=== PATIENT | female | born 1975 | race Caucasian/White ===

== ENCOUNTER → 2020-10-14 13:17 | Outpatient (CLI) | payer OTHER, SELFPAY ==
--- NOTE | 2020-10-14 | EMB_PTH ---
PATIENT: GUME CONCEPCION LOC: [facility] U#:[id number] AGE/SX: 49/F ROOM: RE10/14/[address]: Dr. Wili Pena MD : 1975 BED: DIS: SPEC #: [id number] RECD: 10/14/20 13:38 STATUS: RANDEE DEAN #: [id number] DONNA: 10/14/20 00:[address]: Wili Pena DEPT: SURGICAL PATHOLOGY RECD BY: Jessica Stephens Tissues: Endometrium, NOS Procedures: Surgery Specimen Level IV HEADER OPERATION: Endometrial biopsy PRE-OP DIAGNOSIS: Menorrhagia TISSUE SUBMITTED: Endometrial biopsy MICROSCOPIC DIAGNOSIS Endometrial biopsy: Disordered proliferative endometrium. JULIO:tiana 10/18/20 MICROSCOPIC DESCRIPTION Slides are reviewed. GROSS DESCRIPTION Received in fixative is one container labeled with the patient's name and designated endometrial biopsy. The specimen consists of multiple irregular and elongated fragments of light to dark liz soft tissue that in aggregate measure 2.5 x 1.5 x 0.1 cm. The specimen is totally submitted in one cassette. / AM:tiana 10/15/20 TC:5 CPT: 75169
[2020-10-17 04:48] LABS: HPV Reflexed? NOT INDICATED
== END ==
PROVIDERS: Visit Provider Obstetrics & Gynecology
DX: Z12.4 Encounter for screening for malignant neoplasm of cervix (principal)
CPT/HCPCS: 88175; 88305; G0145

== ENCOUNTER 2020-12-06 06:00 | Day surgery (SDC) | payer SELFPAY, OTHER ==
[2020-11-22 15:04] LABS: Hematocrit 25.6 % (37-47); Hemoglobin 6.6 g/dL (12.0-15.0); Mean Corp Hgb Conc 25.8 g/dL (32-36); Mean Corpuscular Hgb 15.1 pg (27.0-32.0); Mean Corpuscular Volume 58.7 fL (81-99); Mean Platelet Vol. 9.1 fl (6.2-12.0); Platelet Count 448 K/mm3 (150-450); RBC Distribution Width CV 19.9 % (11.6-14.6); RBC Distribution Width SD 40.3 fl (35.1-43.9); Red Blood Count 4.36 M/mm3 (4.2-5.4); White Blood Count 8.3 K/mm3 (4.4-11.0)
[2020-11-22 15:11] LABS: Prothrombin Time (Protime)PT. 12.8 SECONDS (11.7-14.9)
[2020-11-22 15:42] LABS: hCG Titer Quant., Serum < 1 mIU/mL (1-3)
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
[2020-12-06] VITALS (7 sets, daily range): BP systolic 111–125; BP diastolic 75–86; PULSE 72–85; RESP 16–18; TEMP 36.2–37.2; O2SAT 93–100; BMI 43.7
[2020-12-06] MEDS: Lactated Ringers 1,000 ML 100 ML IV (06:39)
[2020-12-06] MEDS: Cefazolin 2 GM in 0.9% Normal Saline 100 ML IV (07:24)
--- NOTE | 2020-12-06 07:30 | EMB_PTH ---
PATIENT: GUME CONCEPCION LOC: [facility] [place] U#:[id number] AGE/SX: 45/F ROOM: RE12/06/[address]: Dr. Wili Pena MD : 1975 BED: DIS: 12/06/2020 SPEC #: [id number] RECD: 12/06/20 09:54 STATUS: RANDEE OMRAN #: [id number] DONNA: 12/06/20 07:[address]: Wili Pena DEPT: SURGICAL PATHOLOGY RECD BY: Jono Choudhary ENTERED: 12/06/20 10:57 SP TYPE: ENDOM BX/C LENORA DR: Justine Arzate, DENNY Tissues: Endometrium, NOS Procedures: Surgery Specimen Level IV HEADER OPERATION: Hysteroscopy, D & C PRE-OP DIAGNOSIS: Premenopause menorrhagia TISSUE SUBMITTED: Endometrial curettings MICROSCOPIC DIAGNOSIS Endometrium, curetting: Simple hyperplasia without atypia. Focal stromal breakdown. Rare fragments of benign superficial squamous mucosa and endocervical mucosa. AM:tiana 12/07/2020 COMMENT Case has been reviewed in consultation with Dr. Sinha who concurs with the above diagnosis. IDC:JULIO MICROSCOPIC DESCRIPTION Slides are reviewed. GROSS DESCRIPTION Received in fixative is one container labeled with the patient's name and designated endometrial curettings. The specimen consists of multiple irregular fragments of pink-red soft tissue mixed with blood clot that in aggregate measure 5 x 3 x 0.6 cm. The specimen is totally submitted in four cassettes. / JULIO:tiana 12/06/20 TC:5 CPT: 16024
--- NOTE | 2020-12-06 07:31 | OP.PCM_ITS ---
Report of Operation Date of Procedure: 12/06/20 Pre-Operative Diagnosis: Menorrhagia, Blood Loss Anemia Post-Operative Diagnosis: Menorrhagia, Blood Loss Anemia Surgery/Procedure Performed:: Diagnostic Hysteroscopy, Dilation and Curettage, Endometrial Polyp Description of Surgical Findings:: 8 cm endometrial cavity with approximately 2 cm endometrial polyp. Cervix extremely high in vagina which would make vaginal hysterectomy not feasible un less robotic assistance were used. Possible submucous fibroid palpated with curette at right fundal area of the uterus. Type of Anesthesia:: MAC Anesthesiologist: Tara Rosario Specimen's removed: Endometrial curettings Estimated Blood Loss (mL): Minimal Fluids Replaced: Crystalloid Description of Procedure: Surgeon: Wili Pena MD, FACOG Indications: This is a 45 year old patient who has the above diagnosis. The patient has been counseled regarding the risk and indications of this procedure including the possibility of bleeding, infection, and injury to surrounding structures such as bowel bladder. All questions were answered and we consider the patient well-informed. Procedure: The patient was taken to the operating room where after induction of general anesthesia, she was placed in the dorsolithotomy position and prepped and draped in the usual sterile fashion. The bladder was drained of approximately 30 cc of clear yellow urine with a catheter. Anterior cervix was grasped with the tenaculum and dilated to about 4-5 mm. A 3 mm hysteroscope was placed in the uterus of the above findings were noted. Cervix was dilated to about 7-8 mm and uterus was gently curetted removing all contents. Hysteroscope was reinserted and all material was noted to be removed. In the course of the procedure approximately 100 cc of saline distending media was used and virtually all of this was recovered. Patient tolerated procedure well was taken to recovery room in satisfactory condition sponge instrument and needle counts were all reportedly correct. Estimated blood loss for the case was minimal. Grafts/Implants Used: None - Complications None - Admit VTE Documentation VTE Present on Admission: Yes VTE Mechan Device Prophylaxis: SCD's
--- NOTE | 2020-12-06 07:58 | PCM.DC.D&C ---
Discharge Diet: No Restrictions Discharge Activity: Return to Normal Activity, May Shower, May Take a Tub Bath May resume sexual activity in: 1-2 weeks Call your doctor if you observe: Fever of 101 or Higher, Inability to urinate, Inability to have a bowel movement, Using more than one pad per hour Allergies/Adverse Reactions: Allergies No Known Allergies Allergy (Verified 11/30/20 08:49) Medications to take at Discharge Ferrous Sulfate 325 mg PO TID 11/30/20 Primary Care Physician: Justine Arzate NP, A R SPECIALIST-C [Primary Care Provider] - Test Results: Test results from this visit will be discussed in further detail at your follow-up appointment, if applicable. Please Follow Up With: Wili Pena MD When: 2 to 3 weeks
== END 2020-12-06 09:48 | disposition home or self-care (01) ==
LOC: SDC 06:01 → AC 06:02
PROVIDERS: PCP Nurse Practitioner Family; Referring Provider Obstetrics & Gynecology; Visit Provider Obstetrics & Gynecology
PROC: 0UDB8ZZ Extraction of Endometrium, Via Natural or Artificial Opening Endoscopic (ICD-10-PCS; CPT 58558; principal; 2020-12-06 07:20)
DX: N85.01 Benign endometrial hyperplasia (principal); N92.1 Excessive and frequent menstruation with irregular cycle; Z20.828 Contact with and (suspected) exposure to other viral communicable diseases; D50.0 Iron deficiency anemia secondary to blood loss (chronic)
CPT/HCPCS: 00952; 58558; 36415; 84702; 85027; 85610; 85730; 86850; 86900; 86901; 87426; 88305; C9803; J7120; J2405

== ENCOUNTER 2021-01-10 05:58 | Day surgery (SDC) | payer SELFPAY, OTHER ==
[2020-12-06 06:30] VITALS: BMI 43.7
[2021-01-05 12:14] LABS: Prothrombin Time (Protime)PT. 12.4 SECONDS (11.7-14.9)
[2021-01-05 12:15] LABS: Partial Thromboplast Time 32.6 Seconds (24.1-36.2)
[2021-01-05 12:50] LABS: Hematocrit 38.3 % (37-47); Hemoglobin 11.2 g/dL (12.0-15.0); Mean Corp Hgb Conc 29.2 g/dL (32-36); Mean Corpuscular Hgb 22.3 pg (27.0-32.0); Mean Corpuscular Volume 76.1 fL (81-99); Mean Platelet Vol. 9.8 fl (6.2-12.0); POSITIVE MORPHOLOGY YES; Platelet Count 343 K/mm3 (150-450); Red Blood Count 5.03 M/mm3 (4.2-5.4); White Blood Count 8.9 K/mm3 (4.4-11.0)
[2021-01-05 13:23] LABS: Scan Indicated on CBC? Y/N YES- FLAGS NOTED
[2021-01-05 13:25] LABS: Differential Comment SCANNED
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
[2021-01-10] VITALS (12 sets, daily range): BP systolic 121–151; BP diastolic 78–96; PULSE 56–86; RESP 16; TEMP 36.2–37.3; O2SAT 93–100; BMI 43.7
[2021-01-10 06:47] LABS: Creatinine, Serum 0.66 mg/dL (0.55-1.02); EST Glomerular Filtration Rate 102 mL/min (>60); Est Glom Filt Rate - Afr Amer 123 mL/min (>60); Estimated Creatinine Clearance 79.52 ml/min
[2021-01-10] MEDS: Cefotetan 2 GM in 0.9% NS 100 ML IV (07:25)
--- NOTE | 2021-01-10 07:27 | OP.PCM_ITS ---
Report of Operation Date of Procedure: 01/10/21 Pre-Operative Diagnosis: Menorrhagia, Submucous Fibroids Post-Operative Diagnosis: Menorrhagia, Submucous Fibroids, Adhesions, Left Ovarian Cysts Surgery/Procedure Performed:: Robotic Assisted Vaginal Hysterectomy and Bilate ral Salpingectomy, Left Oophorectomy Description of Surgical Findings:: 12 cm uterus with normal-appearing fallopian tubes and right ovary at the right ovary adhered to the pelvic sidewall. Markedly cystic left ovary suggestive of endometriosis. Evidence of prior sections. Adhesions of the omentum to the right anterior abdominal wall and filmy adhesions throughout the pelvis. Adhesions of the uterus to the bladder anteriorly. researcher: Laura Gonzalez Type of Anesthesia:: General - Endotracheal Anesthesiologist: Chapito Chow Specimen's removed: Uterus and bilateral fallopian tubes and left ovary Drains: Navarro to straight drain Estimated Blood Loss (mL): Minimal Fluids Replaced: Crystalloid Description of Procedure: Surgeon: Wili Pena MD, FACOG Indication: This is a 45 year old patient who has been having problems with extremely heavy menses, simple endometrial hyperplasia, and submucous fibroids. Conservative measures have not been helpful. The patient has been counseled regarding the risks, benefits and alternatives of this procedure including the possibility of bleeding, infection, and injury to surrounding structures such as bowel bladder and all questions were answered. She understands that if BSO is needed that she will need to be on HRT for an indefinite period of time. Procedure: Pt taken to the operating room where, after induction of general anesthesia, the patient was prepped and draped in the usual sterile fashion and placed on a non-slip Huggy-u-vac device. Trendelenburg test was satisfactory. Bladder was drained of urine with a Navarro catheter which was left in place. Anterior cervix grasped and cervix was dilated to about 3-4 mm. Uterus sounded to 11 cms. 0-Vicryl suture was placed at the 3:00 and 9:00 position of the cervix. A small Advincula Director Of Mechanical Engineering Uterine Manipulator was then placed in the uterus which was high in the vagina and attention was turned to the laparoscopic portion of the procedure. Ropivocaine 0.5% was injected approximately 3 cm superior to the umbilicus and an 8 mm robotic camera port was introduced directly with intraperitoneal placement confirmed with CO2 insufflation. 8 mm robotic side ports were introduced under direct visualization approximately 11 cm lateral and 2 cm inferior to the umbilical port. A 5 mm left upper quadrant port was introduced and airseal insufflation with CO2 was started. The above findings were noted. Robot was docked without difficulty and attention turned to the robotic portion of the procedure. Approximately 30 cc of Ropivicaine was used. Omental adhesions were taken down with sharp dissection and monopolar cautery. The right ovary was freed from the pelvic sidewall of adhesions and mesosalpinx was divided although there was evidence of prior bilateral tubal occlusion so only a small portion of the distal right fallopian tube was seen. Left infundibulopelvic ligament was ligated with 35 augustine bipolar coagulation to the level of the round ligament. The posterior aspect of the cervix was identified and then opened for about 1 cm using 25 watt monopolar cautery. Bladder flap was opened and divided to the level of the round ligaments using monopolar cautery. Progressive bites were then ligated along with adhesions on each side of the cervix with 35 augustine bipolar cautery to the uterine arteries. The anterior vaginal mucosa was entered and cervix circumscribed with monopolar cautery. Uterus and attached tubes and left ovary were removed through the vagina. Vaginal cuff was closed first with 0-Vicryl Rosemary stitches placed at each angle followed by closure of the mid-cuff with 0-Monocryl V-lock suture in two layers. Pelvis was copiously irrigated with saline. The left ureter was noted to p eristalse through most of the surgery and urine was clear. Reed was placed across the pedicles and denuded areas of peritoneum to help with postoperative hemostasis. Robot was undocked and trocars were removed with as much gas as possible. Incisions were closed with 4-0 Monocryl subcuticular sutures and incisions covered with steri-strips. The patient tolerated the procedure well and was taken to the recovery room in satisfactory condition. Sponge, instruments and needle counts were all correct. There were no apparent complications of the surgery. Cefotan 2 gms IV was given prior to the procedure. Estimated Blood Loss: Minimal Specimen to Pathology: Uterus and bilateral fallopian tubes and left cystic ovary Grafts/Implants Used: None - Complications None - Admit VTE Documentation VTE Present on Admission: Yes VTE Mechan Device Prophylaxis: SCD's
--- NOTE | 2021-01-10 07:30 | PCM.DC.VHY ---
Discharge Diet: No Restrictions Discharge Activity: Return to Normal Activity, May Not Drive - while taking narcotic pain medications., May Shower, May Take a Tub Bath May resume sexual activity in: 6-8 weeks Call your doctor if your incision/area has: Continuous Slow Oozing, Sudden Increased Bleeding, Increased Pain/ Swelling, Increased Redness, Foul Smelling Discharge Call your doctor if you observe: Fever of 101 or Higher, Inability to urinate, Inability to have a bowel movement, Using more than one pad per hour Additional Instructions: Nothing in the vagina for 6 weeks please; no lifting more than 20-25 lbs for 6 weeks. Use Ibuprophen 800 mg orally every 8 hours as needed for pain. Can also add Tylenol 1000 mg every 8 hours if needed for pain. If Ibuprophen and Tylenol are not effective then use the Oxycodone but keep in mind it can cause serious constipation issues. Drink lots of water. Call if bleeding more than a pad per hour. Use the colace as constipation is a big issue after this type of surgery. Steps and walking are OK. Activity is encouraged but do not over do it !! Allergies/Adverse Reactions: Allergies No Known Allergies Allergy (Verified 01/10/21 06:14) Medications to take at Discharge Ferrous Sulfate 325 mg PO BID 11/30/20 Magnesium 250 mg PO DAILY 01/03/21 Multivitamins,Therapeutic [Multivitamin] 1 tab PO DAILY 01/03/21 Docusate Sodium [Colace] 100 mg PO BID PRN PRN #60 cap 01/10/21 Oxycodone [Oxyir] 5 mg PO Q6H PRN PRN 7 Days #14 tab 01/10/21 The following prescriptions were given: Docusate Sodium [Colace] 100 mg PO BID PRN PRN #60 cap PRN Reason: Constipation Transmission Status: Received by [facility] Oxycodone [Oxyir] 5 mg PO Q6H PRN PRN 7 Days #14 tab PRN Reason: Pain Score 6-10 Transmission Status: Received by [facility] Primary Care Physician: Justine Arzate SOFTWARE APPLICATIONS DEVELOPER, SOFTWARE APPLICATIONS DEVELOPER-C [Primary Care Provider] - Test Results: Test results from this visit will be discussed in further detail at your follow-up appointment, if applicable. Please Follow Up With: Wili Pena MD When: 2 to 3 weeks
--- NOTE | 2021-01-10 07:35 | HYST_PTH ---
PATIENT: GUME CONCEPCION LOC: [facility] [place] U#:[id number] AGE/SX: 45/F ROOM: RE01/10/[address]: Dr. Wili Pena MD : 1975 BED: DIS: 01/10/2021 SPEC #: [id number] RECD: 01/10/21 12:28 STATUS: RANDEE DEAN #: [id number] DONNA: 01/10/21 07:[address]: Wili Pena DEPT: SURGICAL PATHOLOGY RECD BY: Jessica Stephens ENTERED: 01/11/21 07:46 SP TYPE: HYSTERECT OTHR DR: Justine Arzate, CLINICAL QUALITY MANAGER-C Tissues: Uterus, NOS Procedures: Surgery Specimen Level V HEADER OPERATION: Robotic assisted vaginal hysterectomy, bilateral salpingectomy PRE-OP DIAGNOSIS: Menorrhagia, submucous fibroids TISSUE SUBMITTED: Uterus, cervix, bilateral fallopian tubes, left ovary MICROSCOPIC DIAGNOSIS Uterus, hysterectomy: Cervix - nabothian cyst. Endometrium - transition endometrium. Myometrium - no pathologic change. Portions of right fallopian tube - no pathologic change. Left ovary - serous cystadenofibroma. Left fallopian tube - tubo-ovarian adhesions. AM:tiana 01/12/2021 MICROSCOPIC DESCRIPTION Slides are reviewed. GROSS DESCRIPTION Received in fixative is one container labeled with the patient's name and designated uterus. The specimen consists of a supracervical hysterectomy, attached left ovary and left fallopian tube and detached fragment of presumed right fallopian tube. The ectocervix is not identified. The uterus with cervix measures 9 x 8 x 6.5 cm and weighs 178 gm. The endocervical canal measures 2.2 cm in length and is grossly unremarkable. The triangular endometrial cavity measures 5 x 4 cm. The velvety, reddish-liz endometrium measures up to 0.3 cm in thickness. The myometrium measures 2.4 cm in average thickness and is free of mass lesions. Fragments of presumed right fallopian tube measure 3 cm in length and 0.5 cm in average diameter. The left cystic ovary measures 5.5 x 3.5 x 2 cm. The fallopian tube adjacent to it measures 7 cm in length and 0.6 cm in average diameter. The external surface of the ovary is smooth and glistening. The mid portion of the fallopian tube is adherent to the adjacent ovary. The fimbrial end of both fallopian tubes are grossly unremarkable. Serial sections reveal multiloculated cyst ranging in size from 0.5 to 2.5 cm and containing clear fluid. The inner cyst wall linings are smooth and glistening. Risk Modeler sections are submitted in 12 cassettes as follows: 1 - endocervix, 2 & 3 - anterior uterine wall, 4 & 5 - posterior uterine wall, 6 - presumed right fallopian tube, 7 - left fallopian tube, 8-12 - left ovary and adjacent fallopian tube. / AM:tiana 01/11/21 TC:1 CPT: 05103
[2021-01-10] MEDS: Ropivacaine 0.5% 30 ML Vial (08:05)
[2021-01-10] MEDS: oxyCODONE 5 MG Tablet PO (13:58)
[2021-01-10] MEDS: Ketorolac 15 MG/ML Vial IV (15:04)
[2021-01-10] MEDS: Acetaminophen 500 MG Tablet 1000 MG PO (18:02)
== END 2021-01-10 18:10 | disposition home or self-care (01) ==
LOC: SDC 05:59 → AC 06:00
PROVIDERS: PCP Nurse Practitioner Family; Referring Provider Obstetrics & Gynecology; Visit Provider Obstetrics & Gynecology
PROC: 0UT90ZZ Resection of Uterus, Open Approach (ICD-10-PCS; CPT 58552; principal; 2021-01-10 07:15)
DX: D25.0 Submucous leiomyoma of uterus (principal); Z20.828 Contact with and (suspected) exposure to other viral communicable diseases; N85.01 Benign endometrial hyperplasia
CPT/HCPCS: 00940; 58552; S2900; 36415; 82565; 85027; 85610; 85730; 86850; 86900; 86901; 87426; 88307; C9803; J7120; J2405